=== PATIENT | male | born 1995 | race African-American/Black ===

== ENCOUNTER 2020-09-23 01:38 | Inpatient (IN) | payer OTHER ==
[~2020-09-23] VITALS: Ht 175.3 cm; Wt 56.7 kg
[2020-09-23] VITALS (7 sets, daily range): BP systolic 83–121; BP diastolic 46–76
[2020-09-23 02:16] LABS: BASOPHILS 0.2 % (0.0-2.0); EOSINOPHILS 0.2 % (0.0-3.0); HEMATOCRIT 38.7 % (42.0-52.0); HEMOGLOBIN 12.2 gm/dL (14.0-18.0); MCH 24.9 pg (26.0-34.0); MCHC 31.5 g/dL (28.0-37.0); PLATELET COUNT 309 thou/uL (150-400); POLYS 89.6 % (36.0-66.0); RDW 19.4 % (10.5-14.5); URINE BILIRUBIN 1+ (Negative); URINE BLOOD 1+ (Negative); URINE CLARITY CLOUDY; URINE COLOR YELLOW; URINE GLUCOSE-RANDOM* NEGATIVE (Negative); URINE KETONES 3+ (Negative); URINE NITRITE-REFLEX NEGATIVE (Negative); URINE PROTEIN (DIPSTICK) 2+ (Negative); URINE SPECIFIC GRAVITY 1.025 (1.005-1.035); WBC 12.3 thou/uL (4.0-11.0)
[2020-09-23 02:19] LABS: URINE LEUKOCYTES-REFLEX 2+ (Negative)
[2020-09-23 02:25] LABS: URINE REDUCING SUBSTANCE 0 %
[2020-09-23 02:26] LABS: CALCIUM 8.8 mg/dL (8.5-10.1); ICTOTEST (BILI CONFIRMATORY) Positive (Negative)
[2020-09-23 02:27] LABS: BACTERIA-REFLEX >30 Many /HPF (None Seen); CASTS None Seen /LPF (None Seen); CRYSTALS None Seen /LPF (None Seen); MUCUS 0-3 Light strn/LPF (None Seen); SQUAMOUS None Seen /LPF (0-3); URINE RBC 1-2 Rare /HPF (NONE SEEN)
[2020-09-23 02:31] LABS: DIRECT BILIRUBIN 0.2 mg/dL (<0.1-0.2); TOTAL BILIRUBIN 0.8 mg/dL (0.2-1.0)
[2020-09-23] MEDS ORDERED: MORPHINE SULFAT15 MG PO (04:34)
[2020-09-23] MEDS ORDERED: BACLOFEN20 MG PO (04:35)
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
[2020-09-24 05:36] LABS: HEMATOCRIT 30.9 % (42.0-52.0); MCH 25.3 pg (26.0-34.0); MCHC 31.6 g/dL (28.0-37.0); RBC 3.87 mil/uL (4.50-6.00); RDW 19.3 % (10.5-14.5); WBC 5.5 thou/uL (4.0-11.0)
[2020-09-24 05:37] LABS: HEMOGLOBIN 9.8 gm/dL (14.0-18.0)
[2020-09-24 06:02] LABS: CALCIUM 8.3 mg/dL (8.5-10.1); CREATININE 0.7 mg/dL (0.7-1.3); POTASSIUM 3.7 mmol/L (3.5-5.1)
[2020-09-24 07:47] VITALS: BP 89/54
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
[2020-09-24 15:45] VITALS: BP 90/50
[2020-09-24 21:14] VITALS: BP 86/56
--- NOTE | 2020-09-25 03:10 | NUR ---
PATIENT AOX4 MAKES NEEDS KNOWN.PAIN CONTROLLED THIS SHIFT. PATIENT IS ABLE TO TURN HIMSELF. PATIENT URINE IS YELLOW IN COLOR, NO ODOR.PATIENT HAS A COLOSTOMY BAG, STOMA IS PINK AND MOIST NO S/S OF INFECTION. KLAUS SOLER DONE THIS SHIFT, PAHRMACY CALLED AND NEW ORDER GIVEN. FALL PRECAUTION IN PLACE. PATIENT IN BED ASLEEP AT THIS TIME BREATHING REGULAR AND UNLABOURED.
[2020-09-25 07:55] VITALS: BP 83/40
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
--- NOTE | 2020-09-25 12:13 | NUR ---
PT CONTINUES ON IV VANC AND ZOSYN. WC AND SURGERY FOLLOWING. SURGERY MENTIONED POSSIBLE DEBRIDEMENT WITH BONE CULTURE. MARI RECIEVED CLINICAL RELATED TO DESIRE FOR HOSPITAL BED AND WC UPON DC. CM TO CHECK WITH [place] MEDICAID FOR PRIOR AUTHS. CM FOLLOWING REGARDING DC PLANNING.
--- NOTE | 2020-09-25 14:14 | NUR ---
PT RESTING COMFORTABLY IN BED. ABLE TO ADJUST SELF FOR COMFORT. WOUND CARE SAW PT THIS AM AND DID NOT CHANGE DRESSINGS OR CLEAN WOUNDS DUE TO PLAN OF GOING TO THE OR FOR AN I&D TOMORROW. PT STATES THAT HE TAKES CARE OF COLOSTOMY AND SUPRA-PUBIC CATHETER AND ABSOLUTLY REFUSED FOR ME TO ASSESS EITHER OF THEM. UROLOGY CHANGED OUT CATH AT BEDSIDE. PT AFEBRILE, ADEQUATE UOP, ADEQUATE BM, APPROPRIATE APPETITE. PT HAS BEEN THOUROUGHLY UPDATED AND EDUCATED ON CONDITION AND POC. PT SLOWLY PROGRESSING TOWARDS POC. NPO AT MIDNIGHT FOR I&D TOMORROW.
[2020-09-25 16:04] LABS: URINE BILIRUBIN NEGATIVE (Negative); URINE BLOOD 2+ (Negative); URINE CLARITY CLEAR; URINE COLOR YELLOW; URINE GLUCOSE-RANDOM* NEGATIVE (Negative); URINE KETONES NEGATIVE (Negative); URINE NITRITE-REFLEX NEGATIVE (Negative); URINE PROTEIN (DIPSTICK) NEGATIVE (Negative); URINE SPECIFIC GRAVITY 1.015 (1.005-1.035); URINE UROBILINOGEN 0.2 E.U./dl (0.2-1.0)
[2020-09-25 16:08] LABS: URINE LEUKOCYTES-REFLEX 1+ (Negative)
[2020-09-25 16:27] LABS: SQUAMOUS None Seen /LPF (0-3); URINE WBC-REFLEX 0-5 Rare /HPF (0-5)
[2020-09-25 16:28] LABS: BACTERIA-REFLEX 1-9 Few /HPF (None Seen); CASTS None Seen /LPF (None Seen); CRYSTALS None Seen /LPF (None Seen); URINE RBC 3-10 Few /HPF (NONE SEEN)
[2020-09-25 20:35] VITALS: BP 107/65
[2020-09-26 08:00] VITALS: BP 113/79
--- NOTE | 2020-09-26 10:58 | NUR ---
PT IS TIRED AND DROWSY. PT IS A&O*3. REFUSED TO TAKE ANY MORNING MEDICATION OR BREAKFAST. REFUSE HELPING WITH TAKING THEM. HEART RATE IS BETWEEN [address] SHARMA AND CHARGE NURSE CHRISS NOTIFIED.
--- NOTE | 2020-09-26 11:36 | NUR ---
PT TO HAVE SURGICAL DEBRIDEMENT THIS DAY. PT IS ON IV ZOSYN. CARE TEAM INDIATED THAT THEY DON'T ANTICPATED PT NEEDING PROLONGED IV ABX AND WILL LIKELY BE MEDICALLY STABLE TO DC HOME ONCE MEDICALLY STABLE. CM CALLED FOR MEDICAID PRIOR AUTH AND THEY INDICATED THAT PT GOT HOSPITAL BED IN 2017 AND MATTRESS IN 2019. CM HAD TOLD PT MEDICAID NEEDED TO KNOW WHAT HAPPENED TO THAT ISSUED DME. CM VISITED WITH PT AND INDICATED THE ABOVE. HE STATED THAT HIS BED AND MATTRESS IS AT HIS [employer]AND[employer].. AND ARE BOTH INTACT AND FUNCTIONAL.. WHEN ASKED WHY THEY CAN'T BE BROUGHT TO THE APARTMENT WHERE PT STAY WITH HIS SISTERS HE INDICATED HE NEEDS SOMEONE TO BRING THEM UP THE NUMEROUS STAIRS. CM INDICATED THAT MEDICAID WON'T ISSUE ANOTHER BED OR MATTRESS. CM TO ATTEMPT TO ORDER A WC THROUGH [facility].
[2020-09-26 12:25] VITALS: BP 114/75
--- NOTE | 2020-09-26 19:49 | NUR ---
PT IS A&o*4 AND BEDREST. PT WAS NPO IN THE MORNING FOR DEBRIDEMENT PROCEDURE. PT WAS HELPED TO CLEANED AND CHANGED DRESS BEFORE LEFT THE FLOOR AT 9:00AM. ICD APPLIED IN THE MORNING. PT GET DEBRIDEMENT ON TWO SIDE AND STABLE ON VS AND HEART MONITOR BEFORE AND AFTER PROCEDURE. HEART RATE IS SLOW BETWEEN 55-59 BEATS PER MIN. NO SYMPTOMS FOR THE LOW HEART RATE. PASS REPORT TO MUSIC SUPERVISOR NURSE BRYNN AND WILL MONITOR DRESSING, SAFETY, I&O.
[2020-09-26 22:00] VITALS: BP 107/53
[2020-09-27 05:26] LABS: HEMATOCRIT 33.4 % (42.0-52.0); HEMOGLOBIN 10.6 gm/dL (14.0-18.0); MCH 25.2 pg (26.0-34.0); MCHC 31.6 g/dL (28.0-37.0); MCV 79.6 fL (80.0-100.0); RBC 4.2 mil/uL (4.50-6.00); RDW 19.2 % (10.5-14.5); WBC 9.3 thou/uL (4.0-11.0)
[2020-09-27 05:40] LABS: ALBUMIN 2.3 g/dL (3.4-5.0); CALCIUM 8.4 mg/dL (8.5-10.1); CREATININE 0.7 mg/dL (0.7-1.3); POTASSIUM 3.9 mmol/L (3.5-5.1); TOTAL BILIRUBIN 0.3 mg/dL (0.2-1.0); TOTAL PROTEIN 6.6 g/dL (6.4-8.2)
--- NOTE | 2020-09-27 06:05 | NUR ---
Pt. rested quietly at intervals during the night when checked on during frequent rounds. Po pain meds given for c/o buttocks wound pain (see emar) with some relief noted. No other complaints.
[2020-09-27 08:15] VITALS: BP 98/67
--- NOTE | 2020-09-27 10:22 | NUR ---
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
--- NOTE | 2020-09-27 11:19 | NUR ---
Received awake on bed. Due medications given as prescribed, able to swallow meds w/o difficulty. On room air. Vital signs stable. On telemetry; no signs and complains of chest pain, crushing sensation and heaviness. Assisted in ADLs. On regular diet- tolerating well; no nausea, no vomiting and no abdominal pain; encouraged in taking supplements. With colostomy bag in place; self caring- pt seen and examined by Ostomy nurse today- additional supplies given. With suprapubic cath in place- draining well; output measured and recorded accordingly. With NS at 80cc/hr, infusing well at L FA. S/P I&D 09/26- dressing to be kept in place until pt seen and examined by surgeon as per Dr Holliday's notes yesterday. Complained of pain, scheduled pain meds given as prescribed. Able to turn self in bed. Pt with 4 siderails up- educated pt that it is a form of restraint, but still requested to have it on despite education given. Pt's bed also high up, education also provided that it should be low- but pt still insisting- charge nurse aware. To continue monitoring patient.
--- NOTE | 2020-09-27 13:51 | NUR ---
Discussed during los, no anticipated dc over the weekend, will cont. following as needed for dc needs.
[2020-09-27 17:00] VITALS: BP 102/81
[2020-09-27 21:43] VITALS: BP 126/47
--- NOTE | 2020-09-28 04:03 | NUR ---
patient has surgical wound on coccxy and lle, dressing is c/d/i. patient is able to turn himself q 2 hours. patient urine is yellow in color no odor/s/s of infection. fall precaution in palce. patient in bed asleep at this time breathing regular and unlaboured.
[2020-09-28 05:00] LABS: BASOPHILS 0.3 % (0.0-2.0); EOSINOPHILS 1.2 % (0.0-3.0); HEMATOCRIT 30.6 % (42.0-52.0); HEMOGLOBIN 9.7 gm/dL (14.0-18.0); LYMPHOCYTES 28.8 % (24.0-44.0); MCH 25.2 pg (26.0-34.0); MCHC 31.6 g/dL (28.0-37.0); MCV 79.9 fL (80.0-100.0); MONOCYTES 6.9 % (1.0-8.0); PLATELET COUNT 309 thou/uL (150-400); POLYS 62.8 % (36.0-66.0); RBC 3.83 mil/uL (4.50-6.00); RDW 19.4 % (10.5-14.5)
[2020-09-28 05:28] LABS: ALBUMIN 2.3 g/dL (3.4-5.0); CALCIUM 8.2 mg/dL (8.5-10.1); CREATININE 0.6 mg/dL (0.7-1.3); MAGNESIUM 1.9 mg/dL (1.8-2.4); PHOSPHORUS 3.7 mg/dL (2.5-4.9); POTASSIUM 4.1 mmol/L (3.5-5.1); TOTAL BILIRUBIN 0.3 mg/dL (0.2-1.0); TOTAL PROTEIN 6.2 g/dL (6.4-8.2)
[2020-09-28 08:15] VITALS: BP 98/61
[2020-09-28 15:55] VITALS: BP 97/51
--- NOTE | 2020-09-28 18:11 | NUR ---
PT ASSESSED AT START OF SHIFT. DID NOT EAT MUCH EARLIER PART OF SHIFT BUT C/O NAUSEA LATER ON AND STATED HE HAS BEEN HAVING IT SINCE BEFORE ADMISSION. IV ZOFRAN GIVEN WHICH HELPED AND PT EATING SOME DINNER. DR. BACA IN THIS AFTERNOON TO CHECK WOUNDS. DSNGS CHANGED AT THE TIME AFTER IV MED GIVEN. WOUNDS LOOKING CLEAN. PT ABLE TO TURN HIMSELF WELL. ORDER TO DC TELE AND PT TO TRANSFER TO MED/SURG. REPORT GIVEN TO RECEIVING RN.
[2020-09-28 18:40] VITALS: BP 100/61
--- NOTE | 2020-09-29 03:05 | NUR ---
RECEIVED CARE OF THIS PATIENT AT 1900. PATIENT ALERT AND ORIENTED X4. REMAINS ON BEDREST D/T BEING A PARAPLEGIC. HAS WOUNDS ON BUTTOCK AND MAI. DRESSINGS INTACT. REPLACED IV D/T NOT FLUSHING AND LEAKING. C/O PAIN. MED GIVEN. SLEPT SOME THIS SHIFT.
[2020-09-29 07:00] VITALS: BP 104/65
[2020-09-29 16:15] VITALS: BP 103/62
--- NOTE | 2020-09-29 18:30 | NUR ---
PT ASSESSED AT START OF SHIFT. IN GOOD SPIRITS. EATING BETTER. HAVING BROWN STOOL IN COLOSTOMY BAG. URINE CLEAR, YELLOW. PT TURNS SELF FREQUENTLY. WOUND CARE DONE-WOUNDS HEALING WELL. IV PAIN MED GIVEN FOR DSNG CHANGE AND TOLERATED IT WELL.
[2020-09-29 18:48] VITALS: BP 104/54
--- NOTE | 2020-09-30 03:05 | NUR ---
RECEIVED CARE OF THIS PATIENT AT 1900. PATIENT ALERT AND ORIENTED X4. REMAINS ON BEDREST D/T BEING A PARAPLEGIC WITH MULTIPLE WOUNDS. DRESSING ON L FOOT CHANGED THIS SHIFT. WOUND BED IS GRANULADED TISSUE WITH NO DRAINAGE OR ORDER. C/O PAIN. IV PAIN MED WAS GIVEN PRIOR TO DRESSING CHANGE. SUPRAPUBIC AND COLOSTOMY WHICH PATIENT CARES FOR HIMSELF. IV PATENT IN R HAND WITH FLUIDS INFUSING. SLEPT LITTLE THIS SHIFT.
[2020-09-30 04:14] VITALS: BP 100/60
[2020-09-30 07:18] VITALS: BP 104/59
[2020-09-30 07:34] LABS: ABSOLUTE NEUTROPHILS 5.1 thou/uL (1.4-8.2); BASOPHILS 0.4 % (0.0-2.0); EOSINOPHILS 2.6 % (0.0-3.0); HEMATOCRIT 30.4 % (42.0-52.0); HEMOGLOBIN 9.5 gm/dL (14.0-18.0); LYMPHOCYTES 21.1 % (24.0-44.0); MCH 25.2 pg (26.0-34.0); MCHC 31.2 g/dL (28.0-37.0); MCV 80.8 fL (80.0-100.0); MONOCYTES 8.1 % (1.0-8.0); PLATELET COUNT 355 thou/uL (150-400); POLYS 67.8 % (36.0-66.0); RBC 3.77 mil/uL (4.50-6.00); WBC 7.5 thou/uL (4.0-11.0)
[2020-09-30 08:01] LABS: CALCIUM 8.6 mg/dL (8.5-10.1); CREATININE 0.5 mg/dL (0.7-1.3); MAGNESIUM 2.2 mg/dL (1.8-2.4); PHOSPHORUS 3.5 mg/dL (2.5-4.9); POTASSIUM 3.9 mmol/L (3.5-5.1)
[2020-09-30 09:41] LABS: ANISOCYTOSIS 1+
[2020-09-30 15:46] VITALS: BP 111/66
[2020-09-30 19:06] VITALS: BP 110/72
[2020-10-01 03:49] VITALS: BP 105/66
--- NOTE | 2020-10-01 04:07 | NUR ---
ASSUMED PT CARE AT 1900. INTRODUCED SELF TO PT. PT HAD A FLAT AFFECT AND DID NOT EXPRESS ANY CONCERNS, NO VISIBLE SIGN OF DISTRESS WAS NOTED. PT IS ALERT AND ORIENTED X4. PT RQUESTED FOR THE BED TO BE HIGH. PT WAS RE-EDUCATED ON BED CONTROLS. BED WAS LOCKED, BED ALARM ON AND CALL LIGHT WITHIN REACH.
--- NOTE | 2020-10-01 15:07 | PATH ---
[facility] [place] [address] [place] [address] [place] [address] PATHOLOGY RPT PROCEDURE Name: MUMTAZ CAPONE Room #: 434-P ADM IN M.R.#: [id number] Admission: 09/23/20 Date of : 89 Discharge: Report #: [id number] Path Case #: [id number] [facility] Accession Number: [id number] . 01 Material submitted: . PART A: sacrum - SACRAL WOUND TISSUE PART B: sacrum - SACRAL BONE . 01 Clinical history: . UTI, DEBRIDMENT DECUBITUS ULCER SEPSIS,KETONURIA SACRAL WOUND LEFT LOWER EXTREMITY WOUND . 01 Diagnosis: A. Soft tissue "sacral wound tissue": - Fibrosis, epidermal necrosis and acute and chronic inflammation. . B. Soft tissue and bone "sacral bone": - Bone and soft tissue revealing acute and chronic inflammation. ([facility]/maura; 09/30/2020) LBQ 09/30/2020 1550 Local . 01 Electronically signed: . Xavi Cooper MD, Pathologist NPI- [id number] . 01 Gross description: . A. Received in formalin labeled "Mumtaz Capone sacral wound tissue" is irregular, wood brown fragment of soft tissue measuring 5.1 x 3.2 x 1.4 cm. Specimen is serially sectioned to reveal rubbery, wood-white cut surface. Represents sections of the specimen are submitted in cassette A1. . B. Received in formalin labeled "Mumtaz Capone, sacral bone" are 3 irregular, unoriented wood-white portions of bone and soft tissue measuring in aggregate 2.1 x 1.1 x 0.4 cm. The specimen is here is sectioned to reveal rubbery, wood-white focally gritty cut surface. The specimen is entirely submitted after decalcification in cassette B1. ([facility]; 09/28/2020) GZA/GZA 09/28/2020 1028 Local . 01 Pathologist provided ICD-10: L90.5, I96, L98.9, M86.10, M86.60 . 01 CPT . 094578, [id number], [id number] Specimen Comment: A courtesy copy of this report has been sent to [phone], [phone] Specimen Comment: [id number] Specimen Comment: Report sent to / DR DAVID [address] [address] PATHOLOGY RPT PROCEDURE Name: MUMTAZ CAPONE Room #: 434-P ADM IN M.R.#: [id number] Admission: 09/23/20 Date of : 89 Discharge: Report #: [id number] Path Case #: [id number] Specimen Comment: A duplicate report has been generated due to demographic updates. Performed at: [facility] [place] [address], [place], [place] [id number] MD Xavi Cooper MD Phone: [phone]
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
[2020-10-01 16:39] VITALS: BP 101/60
[2020-10-01 19:24] VITALS: BP 108/65
--- NOTE | 2020-10-01 20:13 | NUR ---
Patient alert and orinted x4, on room air, tolerating diet well, pain medications given per MAR, up wtih in wheelchair today with PT, vital signs stable, and afbriele. Patient declined wound care and RN to change dressings. Bed linens were changed. After geting in wheelchair with PT patient wanted to leave the floor and go outside. RN educated the safety protocols that are in place. Pateint was upset but understood the situation. Call light with in reach, will continue to monitor.
--- NOTE | 2020-10-02 04:14 | NUR ---
PT WAS OBSERVED LYING DOWN ON HIS BED WATCHING A MOVIE ON HIS PHONE AT SHIFT CHANGE.DRSG TO HIS SACRUM/L ISCHIAL TUBEROSITY AND L MEDIAL LEG CHANGED PER PT'S REQUEST.IV PAIN MED GIVEN PRIOR TO DRSG CHANGE PER PT'S REQUEST.PT CONT ON IV ABX ORDERED.PT IS A FALL RISK,NOT COMPLIANT WITH FALL PRECAUTIONS PT'S BED UP BEYOND WHAT IS ALLOWED,EDUCATION GIVEN.PT SLEEPING ON HIS BED AT THIS TIME.CALL LIGHT WITHIN REACH.
[2020-10-02 07:20] VITALS: BP 88/47
--- NOTE | 2020-10-02 08:05 | NUR ---
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 PT LIVES AT HOME WITH SISTER BUT IS PARAPLEGIC. [facility] HAS BEEN CONSULTED TO SEE IF PATIENT IS A CANIDATE FOR ACUTE REHAB. CM SPOKE WITH LIASON FROM [facility] AND SHE REPORTS THEY CANNOT ACCEPT PATIENT HE IS BACK TO BASELINE LEVEL OF FUNCTIONING. CM NOTIFIED ATTENDING WELL DR. WAGNER. PT IS CURRENTLY ON IV ZOSYN. CM AWAITING FINAL RECOMMENDATIONS FOR IV ANBX HE CURRENTLY RECEIVES THEM TID. CM DISCUSSED WITH PATIENT IF HE IS UNABLE TO GO TO ACUTE REHAB PATIENT MAY GO HOME WITH HH AND IV INFUSION. PT STATING HE THINKS HIS SISTER MAY BE ABLE TO HELP HIM WITH HIS IF NEEDED. PT HAS PICC PLACED. CM NOTIFIED ATTENDING AWAITING FINAL ANBX RECS IF ANBX CHANGES TO ONCE A DAY PT MAY BE ABLE TO COME TO INFUSION CLINIC. IF MORE THEN ONCE A DAY PATIENT WILL LIKELY REQUIRE HOME IV INFUSION. PT HAS NO PREFERENCE OF HOME INFUSION COMPANY. CM SENT REFERRAL TO ADAN AT [facility] TO CHECK PATIETNS HOME BENEFITS FOR IV INFUSION WITH CURRENT ANBX. CM AWAITING INPUT AT THIS TIME.
--- NOTE | 2020-10-02 14:37 | NUR ---
Patient alert and orinted x4, on room air, bedrest, turns self in room, tolerating diet well, pain medication given per MAR, dressing change done and tolerated well, vital signs stable, and afbreile. Call light with in reach, will continue to monitor.
--- NOTE | 2020-10-02 15:35 | NUR ---
ON-GOING ASSESSMENT: CM SPOKE WITH KALIN YESSY FROM [facility] WHO REPORTS THEY RAN BENEFITS FOR HOME IV ANBX/SUUPLIES AND IT WOULD COST PATIENT 1-2 DOLLAR COPAY PER WEEK HE WOULD NEED IV ANBX. CM MET WITH PATIENT AT THE BEDSIDE TO DISCUSS AND PT STATING HE WANTS TO GO TO [facility]. CM DISCUSSED THAT [facility] LIAALBA DECLINED STATING HE DOES NOT MEET CRITERIA AND IS BACK TO BASELINE FAR MOBILITY. PT STATING HE REALLY DOES NOT WANT TO GO HOME ON IV ANBX AND HIS SISTER WORKS DURING THE DAY. PT ALSO CONCERNED ABOUT GETTING AROUND AND IV ANBX AT HOME DUE TO PARAPLEGIA. CM NOTIFIED ATTENDING WELL ID PHYSICIAN. CM DISCUSSED PATIENT MAY QUALIFY FOR [facility] PENDING INSURANCE AUTH. PT REPORTS THAT HE HAS BEEN TO [facility] IN THE PAST BUT DOES NOT WANT TO GO BACK THERE. PT IS OPEN TO REFERRAL TO [facility]. CM REACHED OUT TO KALIN DIANA FROM [facility] WHO REPORTS THEY ACCEPT [place] [employer] AND TO FAX REFERRAL. CM SENT REFERRAL. SHE STATES IT HAS BEEN SENT TO THEIR CORPORATE TEAM FOR APPROVAL BUT LOOKS GOOD AND WILL LET CM KNOW FIRST THING IN THE AM. CM WILL CONTINUE TO FOLLOW TO ASSIST NEEDED. CM UPDATED PT AND BEDSIDE RN.
[2020-10-02 15:55] VITALS: BP 111/75
[2020-10-02 19:30] VITALS: BP 104/71
--- NOTE | 2020-10-03 04:38 | NUR ---
ASSUMED PT AT 1900. PT WAS SLEEPING IN BED, INTRODUCED SELF TO PT AND UPDATED THE WHITE BOARD. PT DID NOT EXPRESS ANY CONCERNS AND NO SIGNS OF DISTRESS WAS NOTE. BED IS HIGH PER PT'S REQUEST WITH ALARM ON AND CALL LIGHT WITHIN REACH. PT'S COLOSTOMY BAG WAS CHANGED AND THERE WAS SEROUS DRAINAGE ON THE SCARAL DRESSING, THE L MEDIAL FOOT DRESSING WAS INTACT.
[2020-10-03 05:46] LABS: HEMATOCRIT 30.6 % (42.0-52.0); HEMOGLOBIN 9.9 gm/dL (14.0-18.0); MCHC 32.2 g/dL (28.0-37.0); MCV 80.6 fL (80.0-100.0); RBC 3.8 mil/uL (4.50-6.00); RDW 20.3 % (10.5-14.5); WBC 10.7 thou/uL (4.0-11.0)
[2020-10-03 06:06] LABS: CALCIUM 8.8 mg/dL (8.5-10.1); CREATININE 0.7 mg/dL (0.7-1.3); POTASSIUM 4.1 mmol/L (3.5-5.1)
--- NOTE | 2020-10-03 08:59 | NUR ---
ON-GOING ASSESSMENT: CM REVIEWED CHART. KRISSY RECEIVED A VM FROM [facility] STATING HE NEEDS WOUND MEASUREMENTS ON PATIENT BUT THEY DO HAVE A BED OPEN TODAY. CM FAXED OVER INFORMATION AND RECENT WOUND CARE NOTE AND THEY ARE SUBMITTED FOR INSURANCE AUTH THIS AM. KRISSY NOTIFIED ATTENDING. CM WENT TO SPEAK WITH PATIENT BUT HE IS ASLEEP AT THIS TIME AND CM WILL FOLLOW BACK UP.
--- NOTE | 2020-10-03 10:21 | NUR ---
WOUND CARE; I WAS ASKED TO SEE THE PATIENT TO GET MEASURMENTS. THE MEASURMENTS ARE APPROXIMATE DUE TO THE PATIENTS PAIN RESPONSE. -LEFT ISCHIM 6 X 1 X 0.1 -SACRUM5 X 3 X 3CM/APPROX 3 CM OF UNDERMINING. -LEFT MEDIAL FOOT 2.5 X 2.5 X 0.1
[2020-10-03] MEDS ORDERED: OXYBUTYNIN 5 MG5 M2 PO (13:24)
[2020-10-03] MEDS ORDERED: PEDIA-LAX50 MG/15 M PO (13:24)
[2020-10-03] MEDS ORDERED: ZOSYN 3.373.375 GM/1 IV (13:25)
--- NOTE | 2020-10-03 14:21 | NUR ---
CONFIRMED WITH [facility] ([facility]) THAT PATIENT WILL BE PICKED UP BY [facility] BETWEEN 14:00-17:00. CONFIRMATION #[id number]. [employer] MANAGER AND RAQUEL/TAN NOTIFIED. [facility] ; FAX [phone] ([facility] NON-EMERGENCY AMBULANCE)
--- NOTE | 2020-10-03 15:43 | NUR ---
PT ASSESSED AT START OF SHIFT. PT HAD SOFT UNFORMED STOOL PER NOC RN. EATING AND DRINKING BETTER. DID HAVE SOME C/O MILD NAUSEA THIS AFTERNOON AND ZOFRAN GIVEN PER REQUEST. IV DILAUDID GIVEN PRIOR TO WOUND DSNGS CHANGED. PT GOING FOR CONTINUED SKILLED CARE FOR IV ANTIBIOTICS.
== END 2020-10-03 17:47 | DRG 853 ==
LOC: ER 01:38 → EROBS 03:40 → 4W 03:40 → 4S 09-28 18:45
PROVIDERS: Anesthesiology; Emergency Medicine; Hospitalist; Internal Medicine; Nurse Practitioner Family; Specialist; ADMIT Internal Medicine; ATTEND Internal Medicine
PROC: 0QB10ZZ Excision of Sacrum, Open Approach (ICD-10-PCS; principal; 2020-09-26)
PROC: 0JBC0ZZ Excision of Pelvic Region Subcutaneous Tissue and Fascia, Open Approach (ICD-10-PCS; principal; 2020-09-26)
PROC: 0JBR0ZZ Excision of Left Foot Subcutaneous Tissue and Fascia, Open Approach (ICD-10-PCS; principal; 2020-09-26)
PROC: 05HY33Z Insertion of Infusion Device into Upper Vein, Percutaneous Approach (ICD-10-PCS; 2020-10-01)
DX: A41.9 Sepsis, unspecified organism (principal); L89.154 Pressure ulcer of sacral region, stage 4; L89.623 Pressure ulcer of left heel, stage 3; L89.324 Pressure ulcer of left buttock, stage 4; E43 Unspecified severe protein-calorie malnutrition; N39.0 Urinary tract infection, site not specified; K59.2 Neurogenic bowel, not elsewhere classified; G82.22 Paraplegia, incomplete; M46.28 Osteomyelitis of vertebra, sacral and sacrococcygeal region; Z68.1 Body mass index [BMI] 19.9 or less, adult; E87.6 Hypokalemia; F17.210 Nicotine dependence, cigarettes, uncomplicated; N31.9 Neuromuscular dysfunction of bladder, unspecified; D64.9 Anemia, unspecified; R15.9 Full incontinence of feces; Z93.3 Colostomy status; Z79.899 Other long term (current) drug therapy
CPT/HCPCS: 10045; 10102; 27000; 50010; 50101; 50403; 56524; 57119; 57120; 62110; 62900; 70005